=== PATIENT | female | born 1995 | race Two or more races ===

== ENCOUNTER 2018-08-25 02:40 | Emergency (ER) | payer OTHER ==
[~2018-08-25] VITALS: Ht 142.2 cm; Wt 38.1 kg
[2018-08-25] MEDS ORDERED: DICLOFENAC POTA50 MG PO (08:13)
[2018-08-25] MEDS ORDERED: PERCOCET 5-3251 EACH PO (08:13)
== END 2018-08-25 08:41 | disposition home or self-care (01) ==
LOC: ER 02:40
DX: N80.8 Other endometriosis (principal); R10.2 Pelvic and perineal pain